=== PATIENT | male | born 1980 | race Two or more races ===

== ENCOUNTER 2021-05-14 15:49 | Emergency (ER) | payer MEDICARE, MEDICAID ==
[~2021-05-14] VITALS: Ht 185.4 cm; Wt 67.3 kg
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
--- NOTE | 2021-05-14 16:02 | NUR ---
PA AT BS FOR EVAL
--- NOTE | 2021-05-14 16:20 | NUR ---
pt to CT
--- NOTE | 2021-05-14 16:32 | NUR ---
PT BACK FROM CT
--- NOTE | 2021-05-14 17:06 | NUR ---
XRAY AT BS
--- NOTE | 2021-05-14 17:33 | NUR ---
PT RESTING ON [facility] [place]. CALL LIGHT WITHIN REACH. PT CHART AWAITING RECHECK
[2021-05-14 17:40] VITALS: BP 118/79
--- NOTE | 2021-05-14 18:16 | NUR ---
ERP AT FOR RECHECK
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
--- NOTE | 2021-05-14 18:53 | NUR ---
[facility] given discharge instructions and RX, they have confirmed that they understand the instructions. Patient ambulatory with steady gait.
== END 2021-05-14 18:54 | disposition home or self-care (01) ==
LOC: ED 16:49
DX: S22.42XA Multiple fractures of ribs, left side, initial encounter for closed fracture (principal); S49.91XA Unspecified injury of right shoulder and upper arm, initial encounter; S59.901A Unspecified injury of right elbow, initial encounter; M54.2 Cervicalgia; R51.9 Headache, unspecified; Y04.8XXA Assault by other bodily force, initial encounter; Y93.89 Activity, other specified; Y92.89 Other specified places as the place of occurrence of the external cause; Y99.8 Other external cause status
CPT/HCPCS: 70450; 70486; 71045; 72125; 99285